=== PATIENT | female | born 1955 | race Caucasian/White ===

== ENCOUNTER 2018-12-09 10:40 | Outpatient (CLI) | payer BC, MEDICARE ==
[2018-12-09 12:06] LABS: BASOPHILS % (AUTO) 0.5 % (0-1); EOSINOPHILS # (AUTO) 0.1 X10'3 (0-0.9); EOSINOPHILS % (AUTO) 1.6 % (0-6); LYMPHOCYTES # (AUTO) 1.4 X10'3 (1.1-4.8); LYMPHOCYTES % (AUTO) 44.2 % (21-51); MEAN CORPUSCULAR HEMOGLOBIN 31.7 PG (27.0-31.0); MEAN CORPUSCULAR HGB CONC 32.6 g/dL (33.0-36.5); MEAN CORPUSCULAR VOLUME 97.3 FL (78-98); MEAN PLATELET VOLUME 7.4 FL (7.4-10.4); MONOCYTES # (AUTO) 0.1 X10'3 (0-0.9); NEUTROPHILS # (AUTO) 1.7 X10'3 (1.8-7.7); NEUTROPHILS % (AUTO) 51.7 % (42-75); PRE OP HEMATOCRIT 29.6 % (35.0-45.0); PRE OP PLATELET COUNT 205 X10'3 (140-440); RED BLOOD COUNT 3.04 X10'6 (4.20-5.60); RED CELL DISTRIBUTION WIDTH 18.4 % (11.5-14.5)
[2018-12-09 12:14] LABS: PRE OP HEMOGLOBIN 9.6 g/dL (12.0-16.0)
[2018-12-09 12:18] LABS: PRE OP PROTIME 10.2 SECONDS (9.0-12.0)
[2018-12-09 12:30] LABS: ALBUMIN 3.7 G/DL (3.4-5.0); ALKALINE PHOSPHATASE 104 IU/L (46-116); BLOOD UREA NITROGEN 12 MG/DL (7-18); BUN/CREATININE RATIO 11.8 (6.6-38.0); CALCIUM 9.4 MG/DL (8.5-10.1); CHLORIDE 107 MMOL/L (99-107); CREATININE 1.02 MG/DL (0.40-0.90); PRE OP ALT 25 U/L (30-65); PRE OP ANION GAP 8 (8-16); PRE OP AST 14 U/L (10-37); PRE OP BILIRUB, TOTAL 0.3 MG/DL (0.0-1.0); PRE OP GLUCOSE 104 MG/DL (70-104); PRE OP POTASSIUM 3.6 MMOL/L (3.4-5.1); PRE OP SODIUM 141 MMOL/L (135-145); TOTAL PROTEIN 7.3 G/DL (6.4-8.2); eGFR 54 ML/MIN
[2018-12-09] MEDS ORDERED: AZEL6DRO5 (15:16)
[2018-12-09] MEDS ORDERED: IRBE300T19 PO (15:16)
[2018-12-09] MEDS ORDERED: FEXO-62 PO (15:16)
[2018-12-09] MEDS ORDERED: HYDR25TA4 PO (15:16)
[2018-12-09] MEDS ORDERED: ATOR40TA PO (15:16)
[2018-12-09] MEDS ORDERED: METO-384 PO (15:16)
[2018-12-09] MEDS ORDERED: MELO-102 PO (15:16)
[2018-12-09] MEDS ORDERED: FLUT16SP26 BOTHNARES (15:16)
[2018-12-09] MEDS ORDERED: AMLO10TA13 PO (15:16)
== END 2018-12-09 23:59 | disposition home or self-care (01) ==
LOC: PRE-OP 10:40 → EDSTATUS 12-15 10:45
PROVIDERS: ATTEND Orthopaedic Surgery
DX: M17.11 Unilateral primary osteoarthritis, right knee (principal); Z01.818 Encounter for other preprocedural examination; M25.561 Pain in right knee; I10 Essential (primary) hypertension; Z86.73 Personal history of transient ischemic attack (TIA), and cerebral infarction without residual deficits; E78.5 Hyperlipidemia, unspecified
CPT/HCPCS: 36415; 80053; 85025; 85610; 85730; 86885; 86900; 86901; 86920; 87081

== ENCOUNTER 2023-08-01 08:39 | Outpatient (CLI) | payer BC, MEDICARE ==
[~2023-08-01 08:39] MED LIST: AMLO10TA13 PO; ATOR40TA PO; AZEL6DRO5; FEXO-310 PO; FLUT16SP26 BOTHNARES; HYDR25TA4 PO; IRBE300T26 PO; MELO-102 PO; METO-384 PO
== END 2023-08-01 23:59 | disposition home or self-care (01) ==
LOC: MRI 08:39
PROVIDERS: ATTEND Nurse Practitioner Family
DX: M47.814 Spondylosis without myelopathy or radiculopathy, thoracic region (principal); M54.6 Pain in thoracic spine
CPT/HCPCS: 72146